=== PATIENT | male | born 1980 | race Caucasian/White ===

== ENCOUNTER 2022-12-11 11:47 | Emergency (ER) | payer SELFPAY ==
[2022-12-11] MEDS ORDERED: Ibuprofen 400 MG Tab PO ONE (12:54)
[2022-12-11] MEDS ORDERED: Acetaminophen 325 MG Tab PO ONE (12:54)
[2022-12-11] MEDS ORDERED: Lidocaine 2% 5 ML SDV INJECT ONE (12:55)
[2022-12-11] MEDS ORDERED: oxyCODONE 5 MG Tab PO ONE (12:55)
[2022-12-11] MEDS ORDERED: Amoxicillin/Clavulanate K 875-125 MG Tab PO ONE (12:56)
== END 2022-12-11 14:19 | disposition home or self-care (01) ==
LOC: MW.ED 11:47
DX: K04.7 Periapical abscess without sinus (principal); Z91.048 Other nonmedicinal substance allergy status; Z79.899 Other long term (current) drug therapy; Z72.0 Tobacco use
CPT/HCPCS: 41800; 99283; A9270; J3490